=== PATIENT | male | born 1975 | race Caucasian/White ===

== ENCOUNTER 2020-01-17 19:36 | Emergency (ER) | payer OTHER ==
[~2020-01-17] VITALS: Ht 180.3 cm; Wt 91.0 kg
[2020-01-17 19:36] VITALS: BP 138/96
[2020-01-17] MEDS ORDERED: CYCL-331 PO (20:23)
[2020-01-17] MEDS ORDERED: PRED-220 PO (20:23)
--- NOTE | 2020-01-17 20:23 | PHYS DOC ---
General Adult EDM: Chief Complaint: Left-sided hip pain with radiculopathy HPI: HPI: 44 male presents with a left hip discomfort and radiculopathy down to the knee on the lateral part of the left leg. Patient states he had a little bit of trouble with this last week, but it improved over the weekend. He went back to work today and the pain just got worse all day long. 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 He is up and down all day. He denies any falls or trauma. He took 2 muscle relaxers at home prior to coming to the ER and he has some improvement in his symptoms. He only has a few of these pills left. He is just concerned this will hurt all week at work and wants to know if anything else can be done. Review of Systems: Review of Systems: Constitutional: Denies fever or chills Eyes: Denies change in visual acuity HENT: Denies nasal congestion or sore throat Respiratory: Denies cough or shortness of breath Cardiovascular: Denies chest pain or edema GI: Denies abdominal pain, nausea, vomiting, bloody stools or diarrhea : Denies dysuria Musculoskeletal: Left hip pain with radiculopathy of the left leg Integument: Denies rash Neurologic: Denies headache, focal weakness or sensory changes Endocrine: Denies polyuria or polydipsia Lymphatic: Denies swollen glands Psychiatric: Denies depression or anxiety Heart Score: Risk Factors: Risk Factors: DM, Current or recent (<one month) smoker, HTN, HLP, family history of CAD, obesity. Risk Scores: Score 0 - 3: 2.5% MACE over next 6 weeks - Discharge Home Score 4 - 6: 20.3% MACE over next 6 weeks - Admit for Clinical Observation Score 7 - 10: 72.7% MACE over next 6 weeks - Early Invasive Strategies Physical Exam: PE: Constitutional: Well developed, well nourished, no acute distress, non-toxic appearance. [] HENT: Normocephalic, atraumatic, bilateral external ears normal, oropharynx moist, no oral exudates, nose normal. [] Eyes: PERRLA, EOMI, conjunctiva normal, no discharge. [] Neck: Normal range of motion, no tenderness, supple, no stridor. [] Cardiovascular:Heart rate regular rhythm, no murmur [] Lungs & Thorax: Bilateral breath sounds clear to auscultation [] Abdomen: Bowel sounds normal, soft, no tenderness, no masses, no pulsatile masses. [] Skin: Warm, dry, no erythema, no rash. [] Back: Tenderness of the superior aspect of the left buttocks, some muscle spasm in this region. Normal right side. [] Extremities: No tenderness, no cyanosis, no clubbing, ROM intact, no edema. [] Neurologic: Alert and oriented X 3, normal motor function, normal sensory function, no focal deficits noted. [] Psychologic: Affect normal, judgement normal, mood normal. [] EKG: EKG: [] Radiology/Procedures: Radiology/Procedures: [] Course & Med Decision Making: Course & Med Decision Making Pertinent Labs and Imaging studies reviewed. (See chart for details) I believe the patient either has sacroiliac irritation causing muscle spasm or muscle spasm causing sacroiliac irritation. This is likely due to his job and this is just an acute flareup. I will give the patient a new prescription for Flexeril and place him on 4 days of prednisone. We will give the first dose in the emergency room. Hopefully this will calm down his symptoms. I do not believe imaging is warranted at this time. The patient is stable for discharge at this time. [] Ginger Disclaimer: Ginger Disclaimer: This electronic medical record was generated, in whole or in part, using a voice recognition dictation system. Departure Departure: Impression: Primary Impression: Acute pain of left hip Additional Impression: Sciatic nerve palsy, left Disposition: HOME/RESIDENCE PRIOR TO ADM Condition: STABLE Referrals: DIANNE MISHRA MD (PCP) Patient Instructions: Sciatica with [facility] Scripts Prednisone (PREDNISONE) 10 Mg Tablet 50 MG PO DAILY for sciatic pain for 3 Days, #15 TAB Prov: CLARISSE MAHONEY DO 01/17/20 Cyclobenzaprine Hcl (CYCLOBENZAPRINE HCL) 10 Mg Tablet 1 TAB PO TID PRN for MUSCLE SPASMS, #30 TAB Prov: CLARISSE MAHONEY DO 01/17/20 CLARISSE MAHONEY DO Jan 17, 2020 20:23
[2020-01-17] MEDS ORDERED: predniSONE 10 MG TABLET PO ONE (20:30)
== END 2020-01-17 20:35 | disposition home or self-care (01) ==
LOC: ER 19:36
DX: M25.552 Pain in left hip (principal); G58.8 Other specified mononeuropathies; M54.32 Sciatica, left side
CPT/HCPCS: 99283; J7512